=== PATIENT | female | born 1990 | race Caucasian/White ===

== ENCOUNTER 2017-05-08 21:29 | Emergency (ER) | payer MEDICAID | END 2017-05-08 22:20 | disposition home or self-care (01) | LOC: HOBED 21:29 | DX: O36.8130 Decreased fetal movements, third trimester, not applicable or unspecified (principal); Z3A.38 38 weeks gestation of pregnancy; E03.9 Hypothyroidism, unspecified | CPT/HCPCS: 59025; 99283-25 ==

== ENCOUNTER 2017-05-15 02:58 | Inpatient (IN) | payer MEDICAID ==
[~2017-05-15] VITALS: Ht 162.6 cm; Wt 40.3 kg
[2017-05-15] VITALS (144 sets, daily range): BP systolic 95–153; BP diastolic 51–114; PULSE 74–112; RESP 18–20; TEMP 97.8–98.7; O2SAT 97–100
[~2017-05-15 02:58] MED LIST: B12 PO; MELO15TA2 PO; PERI8.6T PO; SLOW50TA PO; TRAM50 PO; Z.0.BCPILL PO
[2017-05-15] MEDS ORDERED: LIDOCAINE HCL 1% 50 ML VIAL INFIL PRN (03:30)
[2017-05-15] MEDS ORDERED: LACTATED RINGER'S 1000 ML BOLUS IV PRN (03:30)
[2017-05-15] MEDS ORDERED: NS 500 ML BOLUS IV PRN (03:30)
[2017-05-15] MEDS ORDERED: ONDANSETRON HCL 4 MG/2 ML VIAL IV PUSH PRN ×2 (03:30→21:00)
[2017-05-15] MEDS ORDERED: LIDOCAINE HCL 1% 50 ML VIAL I-DERMAL PRN (03:30)
[2017-05-15] MEDS ORDERED: MINERAL OIL 10 ML VIAL TOPICAL PRN (03:30)
[2017-05-15] MEDS ORDERED: NS 1000 ML IV PRN (03:30)
[2017-05-15] MEDS ORDERED: CITRIC ACID-SODIUM CITRATE LIQ 30 ML UDC PO SCH (03:30)
[2017-05-15] MEDS ORDERED: OXYTOCIN 30 UNITS 500ML PREMIX IV ONE (03:30)
[2017-05-15] MEDS ORDERED: LEVO25TA4 PO (03:38)
[2017-05-15] MEDS ORDERED: PREN1TAB45 (03:39)
[2017-05-15] MEDS ORDERED: OXYTOCIN 30 UNITS/NS 500ML PREMIX IV PRN (03:45)
[2017-05-15 04:04] LABS: AUTOMATED NEUTROPHIL # 6.3 TH/MM3 (1.8-7.7); BASOPHIL % 0.3 % (0.0-2.0); EOSINOPHIL # 0.1 TH/MM3 (0-0.4); EOSINOPHIL % 1.5 % (0.0-4.0); HEMATOCRIT 30.3 % (35.0-46.0); HEMOGLOBIN 10.7 GM/DL (11.6-15.3); LYMPH % 24.7 % (9.0-44.0); LYMPHOCYTE # 2.3 TH/MM3 (1.0-4.8); MEAN CELL VOLUME 84.6 FL (80.0-100.0); MEAN CORPUSCULAR HEMOGLOBIN 29.8 PG (27.0-34.0); MEAN CORPUSCULAR HGB CONC 35.2 % (32.0-36.0); MEAN PLATELET VOLUME 7.2 FL (7.0-11.0); MONO % 5.8 % (0.0-8.0); MONOCYTE # 0.5 TH/MM3 (0-0.9); NEUT % 67.7 % (16.0-70.0); PLATELET COUNT 209 TH/MM3 (150-450); RED BLOOD COUNT 3.59 MIL/MM3 (4.00-5.30); RED CELL DISTRIBUTION WIDTH 13.4 % (11.6-17.2); WHITE BLOOD COUNT 9.4 TH/MM3 (4.0-11.0)
[2017-05-15 04:10] LABS: BILIRUBIN, URINE NEG (NEG); BLOOD, URINE NEG (NEG); GLUCOSE,URINE NEG (NEG); KETONE, URINE NEG (NEG); MUCUS URINE FEW /lpf (OCC); NITRITE,URINE NEG (NEG); SQUAMOUS EPITHELIAL CELL URINE 1 /hpf (0-5); URINE COLOR YELLOW (YELLW/STRAW); URINE LEUKOCYTE ESTERASE TRACE (NEG)
[2017-05-15] MEDS: LACTATED RINGER'S 1000 ML IV SCH ×3 (04:22→16:47)
[2017-05-15] MEDS ORDERED: fentaNYL 2MCG-BUPIV 0.125% INJ 100 ML ONE ×2 (08:33→14:49)
[2017-05-15] MEDS ORDERED: ceFAZolin INJ 1,000 MG VIAL IV ONE (12:00)
[2017-05-15] MEDS ORDERED: LIDOCAINE 2%/EPINEPHrine PF 1:200,000 20ML SDV OTHER ONE (12:00)
[2017-05-15] MEDS ORDERED: LACTATED RINGER'S 1000 ML INJ 2,000 ML IV ONE (12:00)
[2017-05-15] MEDS ORDERED: OXYTOCIN 10 UNIT/ML AMP IV ONE (12:00)
[2017-05-15] MEDS ORDERED: ONDANSETRON HCL 4 MG/2 ML VIAL IV ONE (12:00)
[2017-05-15] MEDS ORDERED: DEXAMETHASONE SOD PHOS 4 MG/ML VIAL IV ONE (12:00)
[2017-05-15] MEDS ORDERED: PHENYLEPH/NS 1000 MCG/10 ML SYR IV ONE (12:00)
[2017-05-15] MEDS ORDERED: MORPHINE SULFATE PF 5 MG/10 ML VIAL ONE (19:04)
[2017-05-15] MEDS ORDERED: MIDAZOLAM HCL 2 MG/2 ML VIAL ONE (19:04)
[2017-05-15] MEDS ORDERED: ACETAMINOPHEN 1000 MG/100 ML 100 ML IV ONE (19:04)
[2017-05-15] MEDS ORDERED: CARBOPROST TROMETHAMINE 250 MCG/ML VIAL ONE (19:58)
[2017-05-15] MEDS ORDERED: SODIUM CHLORIDE 0.9% FLUSH 10 ML FLUSH IV FLUSH PRN (21:00)
[2017-05-15] MEDS ORDERED: oxyCODONE/ACETAMINOPHEN 5 MG/325 MG TAB PO PRN (21:00)
[2017-05-15] MEDS: SODIUM CHLORIDE 0.9% FLUSH 10 ML FLUSH IV FLUSH SCH (21:00)
[2017-05-15] MEDS ORDERED: SIMETHICONE 80 MG CHEWABLE TAB PO PRN (21:00)
[2017-05-15] MEDS ORDERED: OXYTOCIN 30 UNITS-500ML PREMIX 500 ML IV ONE ×2 (21:00)
[2017-05-15] MEDS ORDERED: OXYTOCIN 30 UNITS-500ML PREMIX 500 ML ONE (21:17)
[2017-05-15] MEDS ORDERED: EPIDURAL-NO SYSTEMIC NARCOTICS PRN (22:15)
[2017-05-15] MEDS ORDERED: EPIDURAL-DIPHENHYDRAMINE HCL 50 MG CAP PO PRN (22:15)
[2017-05-15] MEDS ORDERED: EPIDURAL-DIPHENHYDRAMINE HCL 50 MG/ML VIAL IV PUSH PRN (22:15)
[2017-05-15] MEDS ORDERED: EPIDURAL-NALOXONE HCL 0.4 MG/ML AMP IV PUSH PRN (22:15)
[2017-05-15] MEDS ORDERED: EPIDURAL-DO NOT ADMINISTER ANTICOAGULANTS PRN (22:15)
[2017-05-16] VITALS (9 sets, daily range): BP systolic 98–120; BP diastolic 50–72; PULSE 80–93; RESP 16–18; TEMP 97.6–98.2; O2SAT 98–100
[2017-05-16] MEDS ORDERED: LACTATED RINGER'S 1000 ML INJ 1,000 ML IV SCH (01:49)
[2017-05-16] MEDS ORDERED: LEVOTHYROXINE SODIUM 25 MCG TAB PO SCH (06:00)
[2017-05-16 06:05] LABS: AUTOMATED NEUTROPHIL # 13.5 TH/MM3 (1.8-7.7); BASOPHIL % 0.1 % (0.0-2.0); EOSINOPHIL % 0.1 % (0.0-4.0); HEMATOCRIT 24.5 % (35.0-46.0); HEMOGLOBIN 8.4 GM/DL (11.6-15.3); LYMPH % 10.6 % (9.0-44.0); LYMPHOCYTE # 1.7 TH/MM3 (1.0-4.8); MEAN CELL VOLUME 85.1 FL (80.0-100.0); MEAN CORPUSCULAR HEMOGLOBIN 29.3 PG (27.0-34.0); MEAN CORPUSCULAR HGB CONC 34.4 % (32.0-36.0); MEAN PLATELET VOLUME 6.8 FL (7.0-11.0); MONO % 5.1 % (0.0-8.0); MONOCYTE # 0.8 TH/MM3 (0-0.9); NEUT % 84.1 % (16.0-70.0); PLATELET COUNT 204 TH/MM3 (150-450); RED BLOOD COUNT 2.88 MIL/MM3 (4.00-5.30); RED CELL DISTRIBUTION WIDTH 13.6 % (11.6-17.2); WHITE BLOOD COUNT 16.1 TH/MM3 (4.0-11.0)
[2017-05-16] MEDS ORDERED: OXYTOCIN 30 UNITS-500ML PREMIX 500 ML IV PRN (07:00)
[2017-05-16] MEDS: IBUPROFEN 600 MG TAB PO PRN ×3 (07:49→22:41)
[2017-05-16] MEDS: oxyCODONE/ACETAMINOPHEN 5 MG/325 MG TAB PO PRN ×3 (07:50→22:41)
--- NOTE | 2017-05-16 08:58 | HHI.OB ---
Subjective Post Operative Day: 1 Remarks doing well, voiding, OOB, ambulating, pain controlled Objective Vitals/I&O Vital Signs Date Time Temp Pulse Resp B/P (MAP) Pulse Ox O2 Delivery O2 Flow Rate FiO2 05/16/17 06:05 97.6 98 05/16/17 06:05 91 18 120/72 (88) 05/16/17 03:05 86 120/65 (83) 05/16/17 03:05 98.1 18 05/15/17 22:05 98.2 97 18 97 05/15/17 22:05 127/61 (83) 05/15/17 21:46 98.4 05/15/17 21:38 18 97 05/15/17 21:37 95 112/56 (74) 05/15/17 21:22 91 19 113/59 (77) 98 05/15/17 21:08 94 20 113/59 (77) 99 05/15/17 21:05 98 05/15/17 20:59 114/63 (80) 05/15/17 20:57 100 05/15/17 20:56 18 05/15/17 20:53 98.6 05/15/17 18:55 100 05/15/17 18:50 104 05/15/17 18:46 101 134/57 (82) 05/15/17 18:45 112 05/15/17 18:40 108 05/15/17 18:35 98 05/15/17 18:30 104 05/15/17 18:30 94 140/72 (94) 05/15/17 18:10 109 05/15/17 18:05 107 05/15/17 18:01 91 120/68 (85) 05/15/17 18:00 20 05/15/17 18:00 98 05/15/17 17:59 97.9 05/15/17 17:55 106 05/15/17 17:50 102 05/15/17 17:46 84 137/59 (85) 05/15/17 17:45 99 05/15/17 17:40 106 05/15/17 17:35 94 05/15/17 17:30 111 153/114 (127) 05/15/17 17:25 111 05/15/17 17:20 108 05/15/17 17:15 103 129/74 (92) 05/15/17 17:15 95 05/15/17 17:10 91 05/15/17 17:05 85 05/15/17 17:00 87 05/15/17 17:00 98.4 20 05/15/17 17:00 85 121/66 (84) 05/15/17 16:55 90 05/15/17 16:50 88 05/15/17 16:45 90 05/15/17 16:45 82 119/57 (77) 05/15/17 16:40 87 05/15/17 16:35 83 05/15/17 16:31 83 112/78 (89) 05/15/17 16:30 78 05/15/17 16:25 89 05/15/17 16:20 93 05/15/17 16:15 92 134/80 (98) 05/15/17 16:15 96 05/15/17 16:10 91 05/15/17 16:05 91 05/15/17 16:00 97 05/15/17 16:00 93 132/72 (92) 05/15/17 15:57 20 05/15/17 15:55 103 05/15/17 15:50 91 05/15/17 15:46 87 141/69 (93) 05/15/17 15:45 102 05/15/17 15:45 20 05/15/17 15:40 93 05/15/17 15:35 88 05/15/17 15:30 90 124/73 (90) 05/15/17 15:30 84 05/15/17 15:30 98.7 18 05/15/17 15:25 86 05/15/17 15:20 85 05/15/17 15:15 82 05/15/17 15:15 85 123/74 (90) 05/15/17 15:10 87 05/15/17 15:05 82 05/15/17 15:00 93 05/15/17 15:00 85 122/77 (92) 05/15/17 14:55 94 05/15/17 14:50 85 05/15/17 14:46 92 125/68 (87) 05/15/17 14:45 86 05/15/17 14:40 88 05/15/17 14:35 89 05/15/17 14:30 85 05/15/17 14:30 20 05/15/17 14:30 87 129/67 (87) 05/15/17 14:25 85 05/15/17 14:20 87 05/15/17 14:15 89 05/15/17 14:15 92 120/67 (84) 05/15/17 14:10 88 05/15/17 14:05 88 05/15/17 14:00 83 05/15/17 14:00 78 108/60 (76) 05/15/17 13:55 82 05/15/17 13:50 91 05/15/17 13:46 90 108/60 (76) 05/15/17 13:45 88 05/15/17 13:40 85 05/15/17 13:35 81 05/15/17 13:31 77 127/58 (81) 05/15/17 13:30 79 05/15/17 13:30 98.0 18 05/15/17 13:25 82 05/15/17 13:20 84 05/15/17 13:15 74 05/15/17 13:15 77 115/58 (77) 05/15/17 13:10 76 05/15/17 13:05 76 05/15/17 13:01 78 109/51 (70) 05/15/17 13:00 82 05/15/17 12:58 18 05/15/17 12:55 77 05/15/17 12:50 77 05/15/17 12:46 84 111/64 (80) 05/15/17 12:45 89 05/15/17 12:40 85 05/15/17 12:35 83 05/15/17 12:30 80 05/15/17 12:30 77 118/59 (78) 05/15/17 12:26 18 05/15/17 12:25 82 05/15/17 12:20 82 05/15/17 12:15 108 05/15/17 12:15 80 108/65 (79) 05/15/17 12:10 81 05/15/17 12:05 81 05/15/17 12:02 80 95/53 (67) 05/15/17 12:00 84 05/15/17 12:00 98.0 18 05/15/17 11:55 83 05/15/17 11:50 93 05/15/17 11:45 78 05/15/17 11:45 82 122/74 (90) 05/15/17 11:15 82 116/65 (82) 05/15/17 11:15 79 05/15/17 11:10 84 05/15/17 11:05 84 05/15/17 11:01 86 113/54 (73) 05/15/17 11:00 86 05/15/17 10:56 18 05/15/17 10:50 139/61 (87) 05/15/17 10:46 125/63 (83) 05/15/17 10:41 83 05/15/17 10:41 127/52 (77) 05/15/17 10:40 90 05/15/17 10:36 89 146/68 (94) 05/15/17 10:36 18 05/15/17 10:35 93 05/15/17 10:31 94 146/75 (98) 05/15/17 10:00 87 131/75 (93) 05/15/17 09:59 97.8 05/15/17 09:39 18 05/15/17 09:31 92 136/62 (86) 05/15/17 09:00 86 122/74 (90) Result Diagram: 05/16/17 0550 Objective Remarks GENERAL: Well-nourished, well-developed patient. CARDIOVASCULAR: Regular rate and rhythm without murmurs, gallops, or rubs. RESPIRATORY: Breath sounds equal bilaterally. No accessory muscle use. ABDOMEN/GI: Abdomen soft, non-tender, bowel sounds present. Incision: dressing Clean, dry and intact. Fundus: Firm, non-tender at umbilicus. GENITOURINARY: Light to moderate bleeding. EXTREMITIES: No cyanosis or edema, non-tender, without signs of DVT. Medications and IVs Current Medications Medications (Trade) Dose Ordered Sig/Darren Route Start Time Stop Time Status Last Admin Lactated Ringer's 1,000 ml @ 100 mls/hr Q10H IV 05/16/17 01:49 05/16/17 21:48 Oxytocin 500 ml @ 100 mls/hr UNSCH X1 PRN IV 05/16/17 07:00 05/17/17 06:59 (NS Flush) 2 ml BID IV FLUSH 05/15/17 21:00 (NS Flush) 2 ml UNSCH PRN IV FLUSH 05/15/17 21:00 (Mylicon Chew) 80 mg QID PRN PO 05/15/17 21:00 (Motrin) 600 mg Q6H PRN PO 05/15/17 21:00 05/16/17 07:49 (Percocet 5-325 Mg) 1 tab Q4H PRN PO 05/15/17 21:00 (Percocet 5-325 Mg) 2 tab Q4H PRN PO 05/15/17 21:00 05/16/17 07:50 (Zoe-Colace) 2 tab Q12H PRN PO 05/15/17 21:00 (M-M-R Ii Inj) 0.5 ml ONCE ONCE SQ 05/16/17 16:00 05/16/17 16:01 (Boostrix Inj) 0.5 ml ONCE ONCE IM 05/16/17 16:00 05/16/17 16:01 05/16/17 03:01 (Zofran Inj) 4 mg Q6H PRN IV PUSH 05/15/17 21:00 (Synthroid) 25 mcg DAILY@0600 PO 05/16/17 06:00 Miscellaneous Information NO SYSTEMIC NARCOTICS TO BE GIVEN FO... UNSCH PRN .XX 05/15/17 22:15 05/16/17 22:14 (Narcan Inj) 0.4 mg UNSCH PRN IV PUSH 05/15/17 22:15 05/16/17 22:14 (Benadryl Inj) 25 mg Q6H PRN IV PUSH 05/15/17 22:15 05/16/17 22:14 (Benadryl) 50 mg Q6H PRN PO 05/15/17 22:15 05/16/17 22:14 Miscellaneous Information ALL NURSING DEPARTMENTS UNSCH PRN .XX 05/15/17 22:15 05/16/17 22:14 Cefazolin Sodium 1000 mg/Sodium Chloride 100 ml @ 200 mls/hr Q8H IV 05/16/17 03:00 05/16/17 11:29 05/16/17 03:07 Assessment/Plan Problem List: (1) delivery delivered ICD Codes: O82 - Encounter for delivery without indication Assessment and Plan POD #1 primary LSTC for arrest of descent doing well, routine post op care synthroid 50 mcg daily Discharge Planning routine Attending Attestation pt seen by me Rola Kaye MD May 16, 2017 08:58
[2017-05-16] MEDS ORDERED: PNEUMOCOCCAL POLYVALENT INJ 25 MCG/0.5 ML SYR IM ONE (10:00)
[2017-05-16] MEDS: SODIUM CHLORIDE 0.9% FLUSH 10 ML FLUSH IV FLUSH SCH (11:12)
[2017-05-16] MEDS: DOCUSATE SODIUM 50 MG/SENNA 8.6 MG TAB PO PRN ×2 (11:13→22:41)
[2017-05-16] MEDS ORDERED: MEASLES, MUMPS, RUBELLA VACCINE 0.5 ML VIAL SQ ONE (16:00)
[2017-05-16] MEDS ORDERED: DIPHTH/TETANUS/ACEL PERTUSSIS (BOOSTER) 0.5 ML VIAL/PFS IM ONE (16:00)
[2017-05-17] MEDS: IBUPROFEN 600 MG TAB PO PRN ×3 (04:48→17:45)
[2017-05-17] MEDS: oxyCODONE/ACETAMINOPHEN 5 MG/325 MG TAB PO PRN ×3 (04:48→17:45)
[2017-05-17] MEDS: LEVOTHYROXINE SODIUM 50 MCG TAB PO SCH (06:50)
[2017-05-17 07:00] VITALS: BP 101/54; PULSE 67; RESP 20; TEMP 97.6
[2017-05-17] MEDS: SODIUM CHLORIDE 0.9% FLUSH 10 ML FLUSH IV FLUSH SCH ×2 (09:00→21:00)
--- NOTE | 2017-05-17 09:23 | HHI.OB ---
Subjective Post Operative Day: 2 Remarks pain not under control with po meds now that duramorph has worn off, probably did too much yesterday Objective Vitals/I&O Vital Signs Date Time Temp Pulse Resp B/P (MAP) Pulse Ox O2 Delivery O2 Flow Rate FiO2 05/17/17 07:00 97.6 67 20 101/54 (70) 05/16/17 19:15 97.8 05/16/17 19:15 112/69 (83) 05/16/17 19:15 93 16 05/16/17 16:05 98.2 92 18 98/50 (66) 100 05/16/17 14:05 18 05/16/17 13:55 18 05/16/17 12:00 106/58 (74) 05/16/17 12:00 98.2 83 18 99 05/16/17 10:17 18 Result Diagram: 05/16/17 0550 Objective Remarks GENERAL: Well-nourished, well-developed patient. CARDIOVASCULAR: Regular rate and rhythm without murmurs, gallops, or rubs. RESPIRATORY: Breath sounds equal bilaterally. No accessory muscle use. ABDOMEN/GI: Abdomen soft, non-tender, bowel sounds present. Incision: Clean, dry and intact. Fundus: Firm, non-tender at umbilicus. GENITOURINARY: Light to moderate bleeding. EXTREMITIES: No cyanosis or edema, non-tender, without signs of DVT. Medications and IVs Current Medications Medications (Trade) Dose Ordered Sig/Darren Route Start Time Stop Time Status Last Admin (NS Flush) 2 ml BID IV FLUSH 05/15/17 21:00 05/16/17 11:12 (NS Flush) 2 ml UNSCH PRN IV FLUSH 05/15/17 21:00 (Mylicon Chew) 80 mg QID PRN PO 05/15/17 21:00 (Motrin) 600 mg Q6H PRN PO 05/15/17 21:00 05/17/17 04:48 (Percocet 5-325 Mg) 1 tab Q4H PRN PO 05/15/17 21:00 (Percocet 5-325 Mg) 2 tab Q4H PRN PO 05/15/17 21:00 05/17/17 04:48 (Zoe-Colace) 2 tab Q12H PRN PO 05/15/17 21:00 05/16/17 22:41 (Zofran Inj) 4 mg Q6H PRN IV PUSH 05/15/17 21:00 (Synthroid) 50 mcg DAILY@0600 PO 05/17/17 06:00 05/17/17 06:50 Assessment/Plan Problem List: (1) delivery delivered ICD Codes: O82 - Encounter for delivery without indication Assessment and Plan POD #2 primary LSTC for arrest of descent pain getting under control, routine post op care synthroid 50 mcg daily Discharge Planning routine Attending Attestation pt seen by Rola Lu MD May 17, 2017 09:23
[2017-05-17] MEDS: DOCUSATE SODIUM 50 MG/SENNA 8.6 MG TAB PO PRN (17:48)
[2017-05-17 19:45] VITALS: BP 115/72; PULSE 80; PULSE 97; RESP 17; TEMP 98.1; O2SAT 97
[2017-05-18] MEDS: IBUPROFEN 600 MG TAB PO PRN ×3 (00:46→12:16)
[2017-05-18] MEDS: DOCUSATE SODIUM 50 MG/SENNA 8.6 MG TAB PO PRN ×2 (00:46→12:17)
[2017-05-18] MEDS: LEVOTHYROXINE SODIUM 50 MCG TAB PO SCH (06:45)
[2017-05-18] MEDS: oxyCODONE/ACETAMINOPHEN 5 MG/325 MG TAB PO PRN ×2 (06:45→12:16)
[2017-05-18 07:35] VITALS: BP 120/77; PULSE 82; RESP 17; TEMP 98.4
[2017-05-18] MEDS ORDERED: OXYC1TAB63 PO (08:27)
[2017-05-18] MEDS ORDERED: IBUP-232 PO (08:27)
--- NOTE | 2017-05-18 08:46 | HHI.OB ---
Subjective Post Operative Day: 3 Objective Vitals/I&O Vital Signs Date Time Temp Pulse Resp B/P (MAP) Pulse Ox O2 Delivery O2 Flow Rate FiO2 05/18/17 07:35 82 17 120/77 (91) 05/18/17 07:35 98.4 05/17/17 19:45 80 05/17/17 19:45 98.1 97 17 115/72 (86) 97 Result Diagram: 05/16/17 0550 Objective Remarks GENERAL: Well-nourished, well-developed patient. CARDIOVASCULAR: Regular rate and rhythm without murmurs, gallops, or rubs. RESPIRATORY: Breath sounds equal bilaterally. No accessory muscle use. ABDOMEN/GI: Abdomen soft, non-tender, bowel sounds present. Incision: Clean, dry and intact. Fundus: Firm, non-tender at umbilicus. GENITOURINARY: Light to moderate bleeding. EXTREMITIES: No cyanosis , non-tender, without signs of DVT, +1 edema to lower extremities Medications and IVs Current Medications Medications (Trade) Dose Ordered Sig/Darren Route Start Time Stop Time Status Last Admin (NS Flush) 2 ml BID IV FLUSH 05/15/17 21:00 05/16/17 11:12 (NS Flush) 2 ml UNSCH PRN IV FLUSH 05/15/17 21:00 (Mylicon Chew) 80 mg QID PRN PO 05/15/17 21:00 (Motrin) 600 mg Q6H PRN PO 05/15/17 21:00 05/18/17 06:46 (Percocet 5-325 Mg) 1 tab Q4H PRN PO 05/15/17 21:00 05/18/17 00:46 (Percocet 5-325 Mg) 2 tab Q4H PRN PO 05/15/17 21:00 05/18/17 06:45 (Zoe-Colace) 2 tab Q12H PRN PO 05/15/17 21:00 05/17/17 17:48 (Zofran Inj) 4 mg Q6H PRN IV PUSH 05/15/17 21:00 (Synthroid) 50 mcg DAILY@0600 PO 05/17/17 06:00 05/18/17 06:45 Assessment/Plan Problem List: (1) delivery delivered ICD Codes: O82 - Encounter for delivery without indication (2) Anemia ICD Codes: D64.9 - Anemia, unspecified Assessment and Plan POD #3 primary LSTC for arrest of descent pt doing well pain well managed with oral pain medication bonding with infant will take daily oral iron once she is no longer taking pain medication routine Discharge Planning [facility] Augustina Sams May 18, 2017 08:46
--- NOTE | 2017-05-18 09:06 | HHI.DS ---
Admission Date May 15, 2017 at 02:58 Discharge Date: May 18, 2017 Admitting Diagnosis term favorable cervix for induction Diagnosis: Delivery Date: May 15, 2017 : Primary Reason: arrest of descent Infant: Female Brief History term with favorable cervix induction of labor Hospital Course term induction of labor pt progressed to complete and zero station primary c section for arrest of descent routine care Pt Condition on Discharge: Good Discharge Disposition: Discharge Home Discharge Instructions Diet Instructions: As Tolerated, No Restrictions Additional Diet Instructions: Drink at least 8 - 16 oz bottles of water a day Activities You Can Perform: Shower Only-No Bath Activities to Avoid: Prolonged Standing, Strenuous Activity, Sexual Activity Additional Activity Instruc.: No driving until off pain medications Do not lift anything heavier than your baby in an infant carrier Follow up Referrals: MERCHANDISING DIRECTOR - 1 Week @ [facility] [place] New Medications: Ibuprofen (Ibuprofen) 600 Mg Tab 600 MG PO Q6H PRN for CRAMPING, #30 TAB Oxycodone HCl/Acetaminophen (Oxycodone-Acetaminophen 5-325) 5 Mg-325 Mg Tablet 1 TAB PO Q4H PRN for moderate pain, #30 TAB Continued Medications: Levothyroxine (Levothyroxine) 25 Mcg Tab 25 MCG PO DAILY for Thyroid, #30 TAB 0 Refills Augustina Thomason May 18, 2017 09:06
--- NOTE | 2017-05-19 09:04 | MP ---
cc: LAKSHMI DICKINSON DATE OF SURGERY 15 May 2017 PREOPERATIVE DIAGNOSIS Arrest of descent. POSTOPERATIVE DIAGNOSIS Arrest of descent. PROCEDURES Primary low transverse section. ANESTHESIA Epidural. SURGEON Carla Dickinson MD FINDINGS Gravid uterus. Normal tubes, normal ovaries, normal cul-de-sac. Viable female infant with good Apgars. COMPLICATIONS None. COUNTS Correct. ESTIMATED BLOOD LOSS 600 cc. FLUIDS Crystalloids. CONDITION The patient tolerated the procedure well and went to the recovery room in good condition. INDICATIONS FOR PROCEDURE This is a young lady who came in for induction and went to complete/complete. She pushed for an hour and a half and did not even descend into the pelvis. I pushed with her for about 20 minutes. She could not push that baby into the pelvis no what. I tried rotating the baby; I thought it was OP; it was OA, were unsuccessful. She still could not push that baby into the pelvis. At this point we decided to proceed with a section. PROCEDURE IN DETAIL Under an adequate level of anesthesia, she was prepped and draped for abdominal surgery. A Pfannenstiel incision was made and carried down to the fascia. The fascia was taken off the rectus muscle by blunt and sharp dissection. The rectus muscles were spread bluntly and the peritoneum was entered under direct vision without difficulty. The incision was extended with care to avoid the urinary bladder. A bladder blade was placed and a bladder flap created in the usual fashion. The uterine incision was made in a transverse manner along the lower uterine segment which was not well-developed. It was taken down in the midline until the intrauterine cavity was entered. A large amount of clear fluid was noted. The vertex was grasped with a suction cup and delivered. The hypopharynx and nasopharynx were suctioned and the remainder of the delivered without difficulty. The cord was doubly clamped and cut and the handed to the resuscitation team present. The placenta was then delivered manually. The uterus was curettaged twice with a wet lap and irrigated with a large amount of fluid. The uterine incision was then repaired with 2-0 Vicryl in a running locking fashion, with the second layer imbricating the first. Hemostasis was excellent. The cul-de-sac and gutters were cleaned of blood and debris. The uterus was delivered back into the abdomen. The rectus muscles were reapproximated with 0 Vicryl in interrupted fashion. The fascia was repaired from lateral to midline with 0 Vicryl and the subcu was repaired with 3-0 Vicryl. The skin was repaired with a 4-0 Vicryl in a subcuticular manner. The wound was sterilely dressed. She tolerated the procedure well and went to the recovery room in satisfactory condition. R. MD KO Jean/JOEY /8:47 PM /8:54 AM
== END 2017-05-18 13:41 | disposition home or self-care (01) | DRG 766 ==
LOC: H2EB 02:58 → H1EA 22:10
PROVIDERS: ADMIT Obstetrics & Gynecology; ATTEND Obstetrics & Gynecology
PROC: 10D00Z1 Extraction of Products of Conception, Low, Open Approach (ICD-10-PCS; principal; 2017-05-15)
PROC: 3E033VJ Introduction of Other Hormone into Peripheral Vein, Percutaneous Approach (ICD-10-PCS; 2017-05-15)
PROC: 10907ZC Drainage of Amniotic Fluid, Therapeutic from Products of Conception, Via Natural or Artificial Opening (ICD-10-PCS; 2017-05-15)
DX: O62.1 Secondary uterine inertia (principal); D64.9 Anemia, unspecified; O61.0 Failed medical induction of labor; O99.02 Anemia complicating childbirth; Z37.0 Single live birth; Z3A.39 39 weeks gestation of pregnancy
CPT/HCPCS: 59025; 80307; 81001; 85025; 86900; 86901; 90715; J0131; J0690; J1100; J1200; J2250; J2274; J2370; J2405; J2590; J3010; J7120